=== PATIENT | male | born 1990 | race Caucasian/White ===

== ENCOUNTER 2024-11-22 23:42 | Emergency (ER) | payer OTHER ==
[~2024-11-22] VITALS: Ht 182.9 cm; Wt 120.0 kg
--- NOTE | 2024-11-23 00:50 | Physician Documentation ---
History of Present Illness ~ Chief Complaint: Ear Pain Stated Complaint: LEFT EAR SWELLING Time Seen by MD: 00:49 HPI Patient presents to the emergency room with pain to the pinna of his left ear. 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 Medication Reconciliation Allergies: Coded Allergies: No Known Allergies (Unverified , 11/23/24) Review of Systems ROS All review of systems negative except as per HPI Physical Exam Vital Signs: Temperature: 98.2, Source: Temporal, Heart Rate: 104, Respiratory Rate: 18, BP: 122/89, Pulse Oximetry: 98, Weight: 120.000 Oxygen Flow Rate: 0 Physical Exam General: Patient is awake, alert, oriented x4 in no acute distress and well appearing.~ Head: Normocephalic and atraumatic. Eyes: Conjunctival normal. EOMI. PERRL. ENT: Mucous membranes moist. Tenderness and swelling to pinpoint hole where his left ear meets his head superiorly. Neck: Supple, trachea is midline. Chest: Clear to auscultation bilaterally without rales, rhonchi, or wheezes. There is no accessory muscle use or retractions. Cardiac: RRR without murmurs, gallops, or rubs. Progress Results/Orders Results/Orders Vital Signs 11/22/24 23:58 Temp 98.2 Pulse 104 Resp 18 B/P (MAP) 122/89 Pulse Ox 98 O2 Flow Rate 0 Medical Decision Making Findings Patient presents to the emergency room as per HPI differentials include but are not limited to epidermal inclusion cyst, abscess, brachial cleft cyst. I do not feel patient requires imaging or labs. We will begin antibiotics. ER precautions discussed. I do not feel patient requires incision and drainage. Departure Disposition: HOME / SELF CARE / HOMELESS Impression: Primary Impression: Abscess Condition: Stable Discharge Instructions: Abscess, Care After Additional Instructions: Warm compresses to affected area. Follow up with your doctor for definitive management Referrals: NO PRIMARY CARE PROVIDER (PCP) Prescriptions Sulfamethoxazole/Trimethoprim (Bactrim Ds Tablet) 800 Mg-160 Mg Tablet 1 TAB PO Q12H for 10 Days, #20 TAB Prov: TAIWO FLORENTINO MD 11/23/24 Education Educated: Patient Educated regarding: diagnosis, treatment, need for follow up Signature Scribe Signature: No scribe Attestation: The note accurately reflects work and decisions made by me.Taiwo Florentino MD 11/23/24 00:59 TAIWO FLORENTINO MD Nov 23, 2024 00:50
[2024-11-23] MEDS ORDERED: SULF1TAB49 PO (00:59)
[2024-11-23 01:13] VITALS: BP 120/86; PULSE 99; RESP 18; TEMP 98.6; O2SAT 99
== END 2024-11-23 01:14 | disposition home or self-care (01) ==
LOC: ER 23:43
DX: H66.42 Suppurative otitis media, unspecified, left ear (principal)
CPT/HCPCS: 99283

== ENCOUNTER 2024-11-24 22:36 | Emergency (ER) | payer OTHER ==
[~2024-11-24] VITALS: Ht 182.9 cm; Wt 74.5 kg
[~2024-11-24 22:36] MED LIST: SULF1TAB49 PO
[2024-11-24 22:52] VITALS: TEMP 98.4
--- NOTE | 2024-11-24 23:27 | Physician Documentation ---
History of Present Illness ~ Chief Complaint: Facial Swelling Stated Complaint: LEFT SIDE OF FACE SWELLING Time Seen by MD: 00:00 [facility] 34-year-old male that presents to the emergency department for evaluation of an abscess to the left ear left preauricular area. Patient reports that he was seen here in the emergency room 2 nights ago started on Bactrim at that time. Patient reports that he has been taking the antibiotics since yesterday morning he is now taking his 4th dose feels like the abscess has increased in size his face is more firm hot and edematous. Patient is unsure of fevers. Patient reports that he feels very uncomfortable and his ear is very painful to the touch. Medication Reconciliation Allergies: Coded Allergies: No Known Allergies (Unverified , 11/24/24) Scheduled Sulfamethoxazole/Trimethoprim (Bactrim Ds Tablet), 1 TAB PO Q12H Review of Systems ROS As stated above in the HPI, otherwise all systems are reviewed and negative. Physical Exam Vital Signs: Temperature: 98.4, Source: Temporal, Heart Rate: 114, Respiratory Rate: 15, BP: 111/84, Pulse Oximetry: 95, Weight: 74.500 Physical Exam VITALS: Reviewed and as above. GENERAL: Alert, no apparent distress. HEENT: Normocephalic, atraumatic, PERRL, EOMI, dry mucosa, no erythema RESPIRATORY: Lungs clear, normal breath sounds, no respiratory distress. CHEST: No accessory muscle use, no retractions CV: Regular rate, rhythm, no edema, no murmur, No: JVD GI: Soft, non-tender, bowels sounds present, no rebound, guarding, or rigidity BACK: No CVA tenderness, or swelling MUSCULOSKELETAL No deformities, no edema SKIN: Warm and dry, moderate edema and erythema noted to the left ear, tragus and preauricular area. Focal area of edema with small amounts of purulent drainage able to be expressed during exam. NEURO: Oriented x4, No motor or sensory deficit PSYCH: Normal mood and affect, no agitation Procedures Procedures I and D of an abscess to the left ear Abscess anesthetized with 4 mL of % lidocaine. Small incision made with an 11 blade. Minimal amounts of purulent drainage expressed. Procedure tolerated well by patient. Wound cleaned and dressed. No need for packing. Progress Results/Orders Results/Orders Completed Orders - MAMADOU,ELVA A PHYSICAL THERAPY SUPERVISOR Hydrocodone/Apap 10/325 ([place] 10/325mg (11/25/24 00:05) Ondansetron Disint. Tablet (Zofran Odt T (11/25/24 00:05) Vital Signs 11/24/24 22:52 Temp 98.4 Pulse 114 Resp 15 B/P (MAP) 111/84 Pulse Ox 95 Medical Decision Making Findings This patient presents with a painful fluid pocket with fluctuance and surrounding induration and erythema, concerning for an abscess of the preauricular area and tragus of the left ear. The abscess was anesthetized with lidocaine and then I&D was performed minimal purulent drainage expressed. There is no lymphangitic spread visible. Low concern for osteomyelitis. Patient is not immunocompromised, and there is no bullae, pain out of proportion, or rapid progression concerning for necrotizing fasciitis. Patient to be discharged home continue taking the Bactrim that he was prescribed 2 nights ago. Patient will follow up with his primary care provider. Patient will return to the emergency department with any worsening of his current symptoms or any additional concerning symptoms that we discussed here today i.e. fevers increased redness increased pressure difficulty hearing increased swelling into the eye or any other concerning symptoms. Differential Dx:Considerations: Include: Anaphylaxis, Angioedema, Bronchospasm, Contact dermatitis, Drug reaction, Hypotension, Latex allergy, Renal failure, Respiratory failure, Shock, Urticaria, Other Departure Disposition: 01 HOME / SELF CARE / HOMELESS Impression: Primary Impression: Abscess of tragus of left ear Condition: Stable Discharge Instructions: Abscess, Care After Additional Instructions: This patient presents with a painful fluid pocket with fluctuance and surrounding induration and erythema, concerning for an abscess of the preauricular area and tragus of the left ear. The abscess was anesthetized with lidocaine and then I&D was performed minimal purulent drainage expressed. There is no lymphangitic spread visible. Low concern for osteomyelitis. Patient is not immunocompromised, and there is no bullae, pain out of proportion, or rapid progression concerning for necrotizing fasciitis. Patient to be discharged home continue taking the Bactrim that he was prescribed 2 nights ago. Patient will follow up with his primary care provider. Patient will return to the emergency department with any worsening of his current symptoms or any additional concerning symptoms that we discussed here today i.e. fevers increased redness increased pressure difficulty hearing increased swelling into the eye or any other concerning symptoms. Please take antibiotic as prescribed. Please take pain medication as prescribed. Please do not take additional Tylenol as the pain medication already has Tylenol in it. Can take ibuprofen in between the times that you take the pain medication if you need additional coverage for discomfort. Follow up with the primary care provider. Please return to the emergency department if you have any worsening or recurrent symptoms or any additional concerning symptoms that we discussed here today. Referrals: NO PRIMARY CARE PROVIDER (PCP) Prescriptions Hydrocodone Bit/Acetaminophen 5/325 MG ([place] 5/325 MG) 5 Mg/325 Mg Tablet 1 TAB PO Q6H PRN for pain for 2 Days, #8 TAB Prov: ELVA CEDILLO 11/25/24 Education Educated: Patient Educated regarding: diagnosis, treatment, need for follow up Signature Scribe Signature: A Attestation: Scribed for Elva Cedillo by EDIE Anderson . 11/25/24 00:15 ELVA CEDILLO Nov 24, 2024 23:27
[2024-11-25] MEDS ORDERED: HYDR-3965 PO (00:12)
[2024-11-25] MEDS: ondansetron 4mg rapidly disintigrating tab PO ONE (00:12)
[2024-11-25] MEDS: HYDROcodone/acetaminophen 10/325mg tab PO ONE (00:13)
[2024-11-25 00:22] VITALS: BP 138/74; PULSE 84; RESP 16; O2SAT 99
== END 2024-11-25 00:25 | disposition home or self-care (01) ==
LOC: ER 22:36
DX: H60.02 Abscess of left external ear (principal)
CPT/HCPCS: 10060; 99283; A6266